=== PATIENT | female | born 1980 | race African-American/Black ===

== ENCOUNTER 2024-04-13 10:51 | Emergency (ER) | payer BC ==
[2024-04-13 10:59] VITALS: TEMP 97.9; BMI 32.8
[2024-04-13] MEDS: FOLIC ACID INJECTION - 1 MG, THIAMINE HCL 100 MG, MULTIVIT INJECTION ADULT 10 ML in SOD... IVPB ONE (11:37)
[2024-04-13 11:44] LABS: INR 0.9 (0.83-1.09); PROTHROMBIN TIME (PATIENT) 10.3 SEC (9.7-13.0)
[2024-04-13 11:46] LABS: HEMATOCRIT 30.9 % (32.4-45.2); HEMOGLOBIN 9.4 G/dL (10.7-15.3); MCHC 30.4 g/dl (32.0-36.0); MEAN CELL VOLUME 75.7 fl (80-96); MEAN PLT VOLUME 9.2 fl (7.5-11.1); PLATELET COUNT 339.4 10^3/uL (134-434); RBC 4.08 10^6/uL (3.60-5.2); RDW 23.3 % (11.6-15.6); WHITE BLOOD COUNT 6.7 10^3/uL (4.0-10.8)
[2024-04-13 11:47] LABS: ACTIVATED PTT 30.6 SECONDS (25.2-36.5)
[2024-04-13 11:57] LABS: ALBUMIN 4.5 g/dl (3.4-5.0); BILIRUBIN,TOTAL 0.2 mg/dl (0.2-1); CALCIUM 9.4 mg/dl (8.5-10.1); CREATININE 0.6 mg/dl (0.6-1.3); MAGNESIUM 1.8 mg/dL (1.8-2.4); PHOSPHOROUS 2.7 (2.5-4.9); POTASSIUM 3.6 mmol/L (3.5-5.1); TOT PROT 7.4 g/dl (6.4-8.2)
[2024-04-13 12:51] VITALS: BP 140/93; PULSE 81; RESP 18
[2024-04-13 13:12] LABS: PLATELET ESTIMATE ADEQUATE
== END 2024-04-13 16:00 | disposition home or self-care (01) ==
LOC: FER 10:51
DX: R42 Dizziness and giddiness (principal); R20.0 Anesthesia of skin
CPT/HCPCS: 36415; 70450-TC; 71045-TC-FY; 80053; 83735; 84100; 84484; 84703; 85027; 85610; 85730; 86850; 86900; 86901; 93005; 99285-25